=== PATIENT | male | born 1995 | race Two or more races ===

== ENCOUNTER 2025-07-31 02:23 | Emergency (ER) | payer OTHER ==
[~2025-07-31] VITALS: Ht 175.3 cm; Wt 104.3 kg
[2025-07-31] MEDS ORDERED: ONDANSETRON HCL 2 MG/ML VIAL IV STA (03:17)
[2025-07-31] MEDS ORDERED: FAMOTIDINE/PF 20 MG/2 ML VIAL IV PUSH STA (03:17)
[2025-07-31] MEDS ORDERED: ONDANSETRON HCL 2 MG/ML VIAL ONE (04:00)
[2025-07-31] MEDS ORDERED: FAMOTIDINE/PF 20 MG/2 ML VIAL ONE (04:00)
[2025-07-31 04:29] LABS: BASO % 0.5 % (0.1-1.2); EOS # 0.56 (0.04-0.54); EOS % 5.6 % (0.7-7.0); LYMPH # 3.05 (1.18-3.74); LYMPH % 30.5 % (19.3-53.1); MEAN PLATELET VOLUME 11.80 fl (9.4-12.4); MONO # 0.76 (0.24-0.82); MONO % 7.6 % (4.7-12.5); NEUT # 5.55 (1.56-6.13); NEUT % 55.5 % (34.0-71.1); RED CELL DISTRIBUTION WIDTH 11.9 % (11.6-14.4)
[2025-07-31 04:55] LABS: ALT/SGPT 30.0 U/L (12-78); AST/SGOT 17.0 U/L (15-37); BILIRUBIN TOTAL 0.47 mg/dL (0.3-1.2); BUN CREA RATIO 16.0 (7.0-25.0); CREATININE SERUM 0.88 mg/dL (0.70-1.30); GFR 103.11; GLOBULINA 3.6 G/DL (2.4-3.5); GLUCOSE FASTING 90.0 mg/dL (65-100); OSMOLALITY SERUM 287.0 MOSM/KG (275-295)
[2025-07-31 05:21] LABS: URINE APPEARANCE Clear; URINE BILIRRUBIN Negative (NEGATIVE); URINE BLOOD Trace; URINE COLOR Yellow; URINE GLUCOSE Negative (NEGATIVE); URINE KETONE Negative (NEGATIVE); URINE LEUKOCYTE Negative; URINE NITRATE Negative; URINE PROTEIN Negative (NEGATIVE); URINE UROBILINOGEN 0.2 E.U./dl
[2025-07-31 05:24] LABS: URINE BACTERIA 4.7 uL (0.0-1933); URINE RBC 5.8 uL (0.0-20.8); URINE WBC 1.9 uL (0.0-23.2)
[2025-07-31 05:50] LABS: TYPE CELLS SQUAMOUS; URINE CAST 0.14 uL (0.0-1.40); URINE EPITHELIAL CELLS 1.2 uL (0.0-38.8)
== END 2025-07-31 06:05 | disposition home or self-care (01) ==
LOC: ER 02:23
PROVIDERS: General Practice
DX: K29.70 Gastritis, unspecified, without bleeding (principal)

== ENCOUNTER 2025-08-03 23:30 | Emergency (ER) | payer OTHER ==
[~2025-08-03] VITALS: Ht 175.3 cm; Wt 104.3 kg
[2025-08-04] MEDS ORDERED: HYOSCYAMINE SULFATE 0.125 MG TAB.SUBL SL STA (01:48)
[2025-08-04] MEDS ORDERED: HYOSCYAMINE SULFATE 0.125 MG TAB.SUBL ONE (02:14)
[2025-08-04 02:56] LABS: BASO % 0.6 % (0.1-1.2); EOS # 0.35 (0.04-0.54); EOS % 3.8 % (0.7-7.0); LYMPH # 2.98 (1.18-3.74); LYMPH % 32.3 % (19.3-53.1); MEAN PLATELET VOLUME 11.60 fl (9.4-12.4); MONO # 0.60 (0.24-0.82); MONO % 6.5 % (4.7-12.5); NEUT # 5.22 (1.56-6.13); NEUT % 56.5 % (34.0-71.1); RED CELL DISTRIBUTION WIDTH 11.8 % (11.6-14.4)
[2025-08-04] MEDS ORDERED: LEVSIN/SL0.125 MG SL (06:02)
[2025-08-04] MEDS ORDERED: INTESTINEX680 M1 PO (06:03)
== END 2025-08-04 06:30 ==
LOC: ER 23:31
PROVIDERS: General Practice
DX: K29.60 Other gastritis without bleeding (principal); R16.1 Splenomegaly, not elsewhere classified

== ENCOUNTER 2025-09-08 11:14 | Emergency (ER) | payer OTHER ==
[~2025-09-08] VITALS: Ht 175.3 cm; Wt 103.0 kg
[~2025-09-08 11:14] MED LIST: INTESTINEX680 M1 PO; LEVSIN/SL0.125 MG SL
[2025-09-08] MEDS ORDERED: BANOPHEN50 MG PO (12:02)
[2025-09-08] MEDS ORDERED: METHYLPREDNISOL16 MG PO (12:02)
[2025-09-08] MEDS ORDERED: METHYLPREDNISOLONE SOD SUCC 125 MG VIAL IV ONE (12:45)
[2025-09-08] MEDS ORDERED: FAMOTIDINE/PF 20 MG/2 ML VIAL IV ONE (12:45)
[2025-09-08] MEDS ORDERED: 0.9 % SODIUM CHLORIDE 1,000 ML IV ONE (12:45)
[2025-09-08] MEDS ORDERED: METHYLPREDNISOLONE SOD SUCC 125 MG VIAL ONE (13:11)
[2025-09-08] MEDS ORDERED: FAMOTIDINE/PF 20 MG/2 ML VIAL ONE (13:11)
[2025-09-08 14:21] LABS: BASO % 0.1 % (0.1-1.2); EOS # 0.00 (0.04-0.54); EOS % 0.0 % (0.7-7.0); LYMPH # 0.91 (1.18-3.74); LYMPH % 6.6 % (19.3-53.1); MEAN PLATELET VOLUME 12.10 fl (9.4-12.4); MONO # 0.61 (0.24-0.82); MONO % 4.4 % (4.7-12.5); NEUT # 12.29 (1.56-6.13); NEUT % 88.5 % (34.0-71.1); RED CELL DISTRIBUTION WIDTH 11.8 % (11.6-14.4)
[2025-09-08 15:05] LABS: ALT/SGPT 26.0 U/L (12-78); AST/SGOT 11.0 U/L (15-37); BILIRUBIN TOTAL 1.26 mg/dL (0.3-1.2); BILIRUBIN,CONJUGATED 0.25 mg/dL (0.0-0.2); BUN CREA RATIO 17.0 (7.0-25.0); CREATININE SERUM 0.88 mg/dL (0.70-1.30); GFR 103.11; GLOBULINA 3.6 G/DL (2.4-3.5); GLUCOSE FASTING 103.0 mg/dL (65-100); OSMOLALITY SERUM 284.0 MOSM/KG (275-295)
== END 2025-09-08 18:02 | disposition home or self-care (01) ==
LOC: ER 11:15
PROVIDERS: General Practice
DX: R10.9 Unspecified abdominal pain (principal); Z88.9 Allergy status to unspecified drugs, medicaments and biological substances; R51.9 Headache, unspecified
CPT/HCPCS: 36415; 74177; Q9965